=== PATIENT | female | born 1995 | race Two or more races ===

== ENCOUNTER 2022-10-17 18:19 | Inpatient (IN) | payer OTHER ==
[~2022-10-17] VITALS: Ht 154.9 cm; Wt 64.0 kg
[~2022-10-17 18:19] MED LIST: PRENATAL + DHA1 EAC1 PO
== END 2022-10-19 11:15 | disposition home or self-care (01) | DRG 807 ==
LOC: LDR 18:19 → OB/GYN 18:19
PROVIDERS: ADMIT Obstetrics & Gynecology; ATTEND Obstetrics & Gynecology
PROC: 10E0XZZ Delivery of Products of Conception, External Approach (ICD-10-PCS; principal; 2022-10-17)
PROC: 4A1HXCZ Monitoring of Products of Conception, Cardiac Rate, External Approach (ICD-10-PCS; 2022-10-17)
DX: O80 Encounter for full-term uncomplicated delivery (principal); Z37.0 Single live birth; Z3A.38 38 weeks gestation of pregnancy; Z20.822 Contact with and (suspected) exposure to COVID-19

== ENCOUNTER 2023-11-22 05:20 | Day surgery (SDC) | payer OTHER ==
[2023-11-22] MEDS ORDERED: POVIDONE-IODINE 118 ML BOTT TOP ONE (11:07)
[2023-11-22] MEDS ORDERED: POVIDONE-IODINE 118 ML BOTT TOP SCH (12:15)
[2023-11-22] MEDS ORDERED: ONDANSETRON HCL 2 MG/ML VIAL IV ONE (13:00)
[2023-11-22] MEDS ORDERED: KETOROLAC TROMETHAMINE 30 MG VIAL IV ONE (13:00)
== END 2023-11-22 15:45 | disposition home or self-care (01) ==
LOC: CIR.AMB 05:20
PROVIDERS: ATTEND Obstetrics & Gynecology
DX: R10.2 Pelvic and perineal pain (principal); N70.91 Salpingitis, unspecified; Z20.822 Contact with and (suspected) exposure to COVID-19